=== PATIENT | female | born 1990 | race Caucasian/White ===

== ENCOUNTER 2020-01-28 12:22 | Emergency (ER) | payer OTHER ==
[~2020-01-28] VITALS: Ht 152.4 cm; Wt 68.0 kg
[2020-01-28] MEDS ORDERED: ZITHROMAX500 MG PO (14:07)
[2020-01-28] MEDS ORDERED: ZYRTEC10 M3 PO (14:07)
[2020-01-28] MEDS ORDERED: TUSSI PRES-B L480 ML PO (14:07)
== END 2020-01-28 14:11 | disposition home or self-care (01) ==
LOC: ER 12:22
DX: B34.9 Viral infection, unspecified (principal); B96.0 Mycoplasma pneumoniae [M. pneumoniae] as the cause of diseases classified elsewhere

== ENCOUNTER 2021-02-20 14:16 | Emergency (ER) | payer OTHER ==
[~2021-02-20] VITALS: Ht 167.6 cm; Wt 66.7 kg
[~2021-02-20 14:16] MED LIST: TUSSI PRES-B L480 ML PO; ZITHROMAX500 MG PO; ZYRTEC10 M3 PO
[2021-02-20] MEDS ORDERED: ZINC 15 MG LOZE15 MG PO (14:29)
[2021-02-20] MEDS ORDERED: VITAMIN C500 MG PO (14:29)
== END 2021-02-20 19:52 | disposition home or self-care (01) ==
LOC: ER 14:16
DX: U07.1 COVID-19 (principal); R53.81 Other malaise

== ENCOUNTER 2021-06-05 14:03 | Emergency (ER) | payer OTHER ==
[~2021-06-05] VITALS: Ht 165.1 cm; Wt 65.8 kg
[~2021-06-05 14:03] MED LIST changes: +VITAMIN C500 MG PO; +ZINC 15 MG LOZE15 MG PO
[2021-06-05] MEDS ORDERED: DUI500 PO (16:36)
== END 2021-06-05 16:55 | disposition home or self-care (01) ==
LOC: ER 14:03
DX: J06.9 Acute upper respiratory infection, unspecified (principal)

== ENCOUNTER 2021-10-07 13:14 | Emergency (ER) | payer OTHER ==
[~2021-10-07] VITALS: Ht 167.6 cm; Wt 63.5 kg
[~2021-10-07 13:14] MED LIST changes: +DUI500 PO
[2021-10-07] MEDS ORDERED: ZITHROMAX TRI-500 MG PO (15:22)
[2021-10-07] MEDS ORDERED: TUSSI PRES-B L480 ML PO (15:22)
== END 2021-10-07 15:50 | disposition home or self-care (01) ==
LOC: ER 13:14
DX: B34.9 Viral infection, unspecified (principal); Z03.818 Encounter for observation for suspected exposure to other biological agents ruled out

== ENCOUNTER 2021-11-04 17:46 | Emergency (ER) | payer OTHER ==
[~2021-11-04] VITALS: Ht 162.6 cm; Wt 68.0 kg
[~2021-11-04 17:46] MED LIST changes: +ZITHROMAX TRI-500 MG PO
== END 2021-11-04 20:53 | disposition home or self-care (01) ==
LOC: ER 17:46
DX: R51.9 Headache, unspecified (principal); Z20.822 Contact with and (suspected) exposure to COVID-19

== ENCOUNTER → 2022-03-03 | Emergency (ER) | payer OTHER ==
[~2022-03-03] VITALS: Ht 165.1 cm; Wt 63.5 kg
== END | disposition home or self-care (01) ==
LOC: ER 11:03
DX: H00.11 Chalazion right upper eyelid (principal); Z88.4 Allergy status to anesthetic agent

== ENCOUNTER 2022-03-31 15:53 | Emergency (ER) | payer OTHER ==
[~2022-03-31] VITALS: Ht 167.6 cm; Wt 63.5 kg
== END 2022-03-31 20:11 | disposition home or self-care (01) ==
LOC: ER 15:53
DX: H66.93 Otitis media, unspecified, bilateral (principal); Z20.822 Contact with and (suspected) exposure to COVID-19; Z91.041 Radiographic dye allergy status

== ENCOUNTER 2022-07-06 22:04 | Emergency (ER) | payer OTHER ==
[~2022-07-06] VITALS: Ht 167.6 cm; Wt 72.6 kg
== END 2022-07-07 | disposition home or self-care (01) ==
LOC: ER 22:04
DX: J98.8 Other specified respiratory disorders (principal); Z20.822 Contact with and (suspected) exposure to COVID-19; Z91.041 Radiographic dye allergy status

== ENCOUNTER 2022-07-08 09:31 | Outpatient (CLI) | payer OTHER | END 2022-07-08 10:57 | disposition home or self-care (01) | LOC: LAB 09:31 | PROVIDERS: ATTEND General Practice | DX: E78.5 Hyperlipidemia, unspecified (principal); E55.9 Vitamin D deficiency, unspecified; N39.0 Urinary tract infection, site not specified; R42 Dizziness and giddiness; D64.9 Anemia, unspecified; Z00.00 Encounter for general adult medical examination without abnormal findings ==